=== PATIENT | female | born 1985 | race Caucasian/White ===

== ENCOUNTER 2022-10-10 01:30 | Emergency (ER) | payer MEDICAID, SELFPAY ==
--- NOTE | ~2022-10-10 | CT_ITS ---
EXAMINATION: CT ABDOMEN AND PELVIS WITH CONTRAST CLINICAL INFORMATION: Right flank pain COMPARISON: None TECHNIQUE: Multidetector volumetric images were obtained from the superior aspect of the liver through the pubic symphysis following administration 85 mL of Omnipaque 350 intravenous contrast. Sagittal and coronal reformatted images were obtained on the technologist's workstation. Oral contrast: No This CT examination was performed using dose optimization techniques as appropriate, variously including the following: *Automated exposure control *Adjustment of mA and/or kV according to patient size (this includes techniques or standardized protocols for targeted exams where dose is matched to indication/reason for exam; i.e. extremities or head) *Use of iterative reconstruction technique DLP: 373 mGy-cm FINDINGS: LUNG BASES: The visualized lung bases are unremarkable. LIVER, GALLBLADDER, AND BILIARY TREE: The liver is normal in size, shape, and attenuation. There is a 1.4 cm benign cyst in the right lobe liver. An additional subcentimeter cyst is present in hepatic segment 7. No suspicious liver lesions. No biliary ductal dilatation is present. The gallbladder is unremarkable with no evidence of radiopaque gallstones, gallbladder wall thickening, or obvious pericholecystic inflammatory changes. PANCREAS: Unremarkable. SPLEEN: Unremarkable. ADRENAL GLANDS: Unremarkable. KIDNEYS AND URETERS: The kidneys are normal in size, shape, and attenuation. There is right renal pelvic urothelial thickening and peripelvic fat stranding as well as right periureteral fat stranding proximally. No hydronephrosis, hydroureter, or calculi seen. There is a 1.5 cm simple cyst in the right kidney which is benign. No follow-up required. BLADDER: Unremarkable. GASTROINTESTINAL TRACT: The small and large bowel are unremarkable. The appendix is unremarkable. ABDOMINAL WALL: No significant hernia is appreciated. LYMPH NODES: Normal. VASCULAR: Unremarkable. PELVIC VISCERA: IUD present within the uterus. Ovaries unremarkable. Small pelvic free fluid. OSSEOUS STRUCTURES: No acute or suspicious osseous abnormalities CT/CT abdomen pelvis w IV con IMPRESSION: * There is right renal pelvic urothelial thickening and peripelvic fat stranding as well as right periureteral fat stranding proximally. Findings could relate to a recently passed stone or more likely, ascending urinary tract infection (ureteritis / pyelitis) * No urinary calculi or hydronephrosis. * Small pelvic free fluid is likely physiologic in a patient of this age.
[2022-10-10 01:49] VITALS: BP 162/97; PULSE 115; RESP 18; TEMP 37.3; O2SAT 100; BMI 20.9
[2022-10-10 02:34] LABS: MANUAL DIFF FLAG NO
[2022-10-10 02:35] LABS: Basophils Percent Auto 0.2 % (0-2); Eosinophils Absolute Auto 0.1 X10*3/uL (0.0-0.4); Eosinophils Percent Auto 0.5 % (0-4); Hematocrit 41.3 % (37.0-47.0); Hemoglobin 13.9 g/dl (12.0-16.0); Imm Gran Abs Auto 0.03 X10*3/uL (0.00-0.03); Imm Gran Pct Auto 0.2 % (0.0-0.4); Lymphocytes Absolute Auto 1.7 X10*3/uL (1.2-4.9); Lymphocytes Percent Auto 12.6 % (20-40); Mean Corpuscular HGB Conc 33.7 g/dl (31.0-35.0); Mean Corpuscular Volume 89.2 fL (80.0-98.0); Mean Platelet Volume 11.5 fL (9.4-12.3); Monocytes Absolute Auto 0.9 X10*3/uL (0.1-1.2); Monocytes Percent Auto 6.4 % (2-11); Neutrophils Percent Auto 80.1 % (45-73); Platelet Count 228 X10*3/uL (160-400); Red Blood Count 4.63 X10*6/uL (4.20-5.50); Red Cell Distribution Width 11.7 % (11.0-16.0); White Blood Count 13.7 X10*3/uL (4.8-10.8)
[2022-10-10 02:57] LABS: Anion Gap 14 (12-20); Blood Urea Nitrogen 9 mg/dL (9-16); Calcium 9.6 mg/dL (8.4-10.2); Carbon Dioxide 22 mmol/L (22-29); Chloride 108 mmol/L (96-108); Creatinine Clr Calc Pharmacy 113.1; Estimated Glomerular Filt Rate > 60; Glucose Random 103 mg/dL (60-115); Potassium 3.7 mmol/L (3.3-5.1); Sodium 140 mmol/L (135-145)
[2022-10-10 03:03] LABS: Appearance Urine Clear; Color Urine Yellow; Glucose Urine UA Negative (Negative); Leukocyte Esterase Urine Trace (Negative); Nitrite Urine Negative (Negative); UMIC TRIGGER UACC YES; Urine Blood Negative (Negative); Urine Ketones Trace mg/dL (Negative); Urine Protein Negative (Neg-Trace)
[2022-10-10 03:48] VITALS: BP 152/92; PULSE 107; RESP 16; TEMP 37.8; O2SAT 100
[2022-10-10 03:50] LABS: Bacteria Urine None Seen (None Seen); Hyaline Casts Urine 0-2 /LPF (0-2); RBC Urine 0-2 /HPF (0-2); Squamous Epithelial Cell Urine 0-2 /HPF (0-2); UACC Culture Trigger YES
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
[2022-10-10 04:27] LABS: UPreg QC Valid YES; Urine Pregnancy NEGATIVE (NEGATIVE)
[2022-10-10 04:35] LABS: Influenza A PCR NEGATIVE (Negative); Influenza B PCR NEGATIVE (Negative); Resp Syncy Virus RNA Qual PCR NEGATIVE (Negative); SARS COV2 PCR INHOUSE NEGATIVE (Negative)
[2022-10-10] MEDS: 0.9 % Sodium Chloride 1,000 ML 999 ML IV (04:39)
[2022-10-10 04:47] VITALS: RESP 14
[2022-10-10] MEDS: Morphine Sulfate 4 MG/ML CARTRIDGE IVPUSH (04:47)
[2022-10-10] MEDS: ondansetron HCL 4 MG/2 ML VIAL IVPUSH (04:47)
[2022-10-10] MEDS: iohexoL 350 MG/ML 100 ML INFUS..BTL 75 ML IV (05:12)
[2022-10-10] MEDS: levoFLOXacin 500 MG TABLET PO (06:12)
[2022-10-10 06:23] VITALS: BP 139/72; PULSE 96; RESP 16; TEMP 37.2; O2SAT 99
== END 2022-10-10 06:24 | disposition home or self-care (01) ==
PROVIDERS: Emergency Provider Internal Medicine
DX: N23 Unspecified renal colic (principal); N39.0 Urinary tract infection, site not specified; B96.20 Unspecified Escherichia coli [E. coli] as the cause of diseases classified elsewhere; Z20.828 Contact with and (suspected) exposure to other viral communicable diseases
CPT/HCPCS: 0241U; 36415; 74177; 80048; 81001; 81025; 85025; 87086; 87088; 87186; 96361; 96374; 96375; 99284; J2270; J2405; Q9967